=== PATIENT | female | born 1980 | race Two or more races ===

== ENCOUNTER 2018-01-04 11:15 | Outpatient (CLI) | payer OTHER ==
[~2018-01-04 11:15] MED LIST: AMOX1TAB12 PO; KETO10TA2 PO; PRENATAL TABLE1 EAC4 PO
== END 2018-01-04 15:43 | disposition home or self-care (01) ==
LOC: SONOGRAMA 11:15
DX: N60.11 Diffuse cystic mastopathy of right breast (principal); N60.12 Diffuse cystic mastopathy of left breast

== ENCOUNTER 2021-07-13 15:15 | Outpatient (CLI) | payer OTHER | END 2021-07-13 15:30 | disposition home or self-care (01) | LOC: PPH VACUNA 15:15 | PROVIDERS: ATTEND Emergency Medicine Pediatric Emergency Medicine | DX: Z23 Encounter for immunization (principal) ==

== ENCOUNTER 2024-01-19 19:32 | Emergency (ER) | payer OTHER ==
[~2024-01-19] VITALS: Ht 160 cm; Wt 56.7 kg
[2024-01-19] MEDS ORDERED: TETANUS & DIPHTHERIA TOX,ADULT 0.5 ML VIAL IM ONE (20:00)
== END 2024-01-19 21:25 | disposition home or self-care (01) ==
LOC: ER 19:33
DX: S61.230A Puncture wound without foreign body of right index finger without damage to nail, initial encounter (principal); X58.XXXA Exposure to other specified factors, initial encounter; Y93.89 Activity, other specified; Y92.89 Other specified places as the place of occurrence of the external cause; Y99.9 Unspecified external cause status